=== PATIENT | male | born 1995 | race Caucasian/White ===

== ENCOUNTER 2023-07-31 15:49 | Emergency (ER) | payer MEDICAID ==
[~2023-07-31] VITALS: Ht 185.4 cm; Wt 62.1 kg
[2023-07-31 17:03] LABS: BASOPHILS # (AUTO) 0.1 K/UL (0.0-0.2); BASOPHILS % (AUTO) 0.5 % (0.0-2.0); EOSINOPHILS # (AUTO) 0.3 K/uL (0.0-0.7); HEMATOCRIT 48.3 % (36.7-47.1); HEMOGLOBIN 16.6 g/dL (12.5-16.3); LYMPHOCYTES # (AUTO) 2.3 K/uL (0.8-4.8); LYMPHOCYTES % (AUTO) 23.8 % (20.5-51.5); MEAN CORPUSCULAR HEMOGLOBIN 29.6 uug (23.8-33.4); MEAN CORPUSCULAR HGB CONC 34 g/dL (32.5-36.3); MONOCYTES # (AUTO) 0.8 K/uL (0.1-1.30); MONOCYTES % (AUTO) 8.5 % (0.0-11.0); NEUTROPHILS # (AUTO) 6.2 K/uL (1.8-8.9); NEUTROPHILS % (AUTO) 64.2 % (38.5-71.5); PLATELET COUNT (AUTO) 225 K/uL (152-348); RED BLOOD CELL COUNT(AUTO) 5.62 MIL/uL (4.06-5.63); RED CELL DISTRIBUTION WIDTH 13.3 % (12.1-16.2); WHITE BLOOD COUNT (AUTO) 9.6 K/uL (3.6-10.2)
[2023-07-31 17:16] LABS: DIFFERENTIAL COMMENT 1
[2023-07-31 17:17] LABS: ETHANOL 38 MG/DL (0-10)
[2023-07-31 17:29] LABS: LIPASE 56 U/L (16-77); NT-PRO BNP 23 pg/mL (0-125)
[2023-07-31] MEDS ORDERED: SWABABLE VALVE TRANSFER SET EA MC ONE (17:48)
[2023-07-31] MEDS ORDERED: IOHEXOL 300MG/ML 100 ML INFUS..BTL ONE (17:48)
[2023-07-31] MEDS ORDERED: IV NORMAL SALINE 250 ML IV ONE (17:49)
[2023-07-31 18:01] LABS: *BILIRUBIN,URIN NEGATIVE (NEGATIVE); *BLOOD, URINE NEGATIVE (NEGATIVE); *CLARITY,URINE CLEAR (CLEAR); *COLOR,URINE YELLOW (YELLOW); *KETONES,URINE NEGATIVE (NEGATIVE); *PROTEIN,URINE NEGATIVE (NEGATIVE); *UROBILINOGEN,URINE 0.2 E.U./dl (NORMAL); LEUKOCYTE ESTERASE ,URINE NEGATIVE (NEGATIVE); NITRITE, URINE NEGATIVE (NEGATIVE); PH,URINE 6.5 (5.0-8.0); UGLUCOSE NEGATIVE (NEGATIVE)
[2023-07-31 18:15] LABS: *AMPHETAMINE, URINE NEGATIVE (NEGATIVE); *BARBITURATE, URINE NEGATIVE (NEGATIVE); *BENZODIAZEPINE, URINE NEGATIVE (NEGATIVE); *CANNABINOID, URINE POSITIVE (NEGATIVE); *COCCAINE, URINE NEGATIVE (NEGATIVE); *OPIATE, URINE NEGATIVE (NEGATIVE); *PHENCYCLIDINE SCREEN,URINE NEGATIVE (NEGATIVE); FENTANYL, URINE NEGATIVE (NEGATIVE)
[2023-07-31 18:24] LABS: AMMONIA 22 umol/L (11-32)
[2023-07-31 18:28] LABS: CHLORIDE 104 mmol/L (98-107); POTASSIUM 3.5 mmol/L (3.5-5.1); SODIUM SERUM 143 mmol/L (136-145)
[2023-07-31 18:29] LABS: CALCIUM 9.3 mg/dL (8.5-10.1); CARBON DIOXIDE 18 mmol/L (21-32); GLUCOSE 85 mg/dL (74-106); UREA NITROGEN, BLOOD 10 mg/dL (7-18)
[2023-07-31 18:41] LABS: ALANINE AMINOTRANSFERASE 43 U/L (16-63); ALBUMIN 4.5 g/dL (3.4-5.0); ALKALINE PHOSPHATASE 98 U/L (50-136); ASPARTATE AMINOTRANSFERASE 33 U/L (15-37); BILIRUBIN,DIRECT 0.1 mg/dL (0.0-0.2); BILIRUBIN,TOTAL 0.3 mg/dL (0.2-1.0); TOTAL PROTEIN, SERUM 7.7 g/dL (6.4-8.2)
[2023-07-31 19:26] LABS: ACETAMINOPHEN < 10.0 ug/mL (10-30)
[2023-07-31] MEDS ORDERED: LORAZEPAM 1 MG TABLET ONE (20:09)
[2023-07-31] MEDS: LORAZEPAM 0.5 MG TABLET PO ONE (20:11)
[2023-07-31] MEDS ORDERED: OMEP40CA21 PO (20:37)
[2023-07-31] MEDS: NICOTINE 21 MG/24HR PATCH TD SCH (20:49)
[2023-07-31 21:09] VITALS: BP 129/84; TEMP 98.6; O2SAT 98
== END 2023-07-31 21:09 | disposition home or self-care (01) ==
LOC: ER 15:57
DX: K21.9 Gastro-esophageal reflux disease without esophagitis (principal); F41.9 Anxiety disorder, unspecified; R10.32 Left lower quadrant pain; I48.91 Unspecified atrial fibrillation; R51.9 Headache, unspecified; E03.9 Hypothyroidism, unspecified; Z79.899 Other long term (current) drug therapy
CPT/HCPCS: 80076; 80048; 81003; 82140; 83880; 83690; 84443; 85025; 85730; 84484; 36415; 93005; 71045; 70450; 74177; 99285; 80299; 80320; 80307; Q9967; A4606; A4663; G0480